=== PATIENT | female | born 1965 | race Caucasian/White ===

== ENCOUNTER 2017-07-25 09:47 | Inpatient (IN) | payer OTHER ==
[2017-07-25 10:38] VITALS: BMI 25.7
--- NOTE | 2017-07-25 13:22 | HP ---
COWS - Scale Resting Pulse: 0= [place] 80 or Below Sweatin= Chills/Flushing Restless Observation: 3= Extraneous Movement Pupil Size: 0= Normal to Room Light Bone or Joint Aches: 4=Acute Joint/Muscle Pain Runny Nose/ Eye Tearin= Nasal Congestion GI Upset > 30mins: 1= Stomach Cramp Tremor Observation: 2= Slight Tremor Visible Yawning Observation: 1= 1-2x During Session Anxiety or Irritability: 2=Irritable/Anxious Goose Flesh Skin: 0=Smooth Skin COWS Score: 15 CIWA Score - CIWA Score Nausea/Vomitin-No Nausea/No Vomiting Muscle Tremors: 4-Moderate,w/Arms Extend Anxiety: 5 Agitation: 4-Moderately Restless Paroxysmal Sweats: 1-Minimal Palms Moist Orientation: 0-Oriented Tacttile Disturbances: 3-Moderate Itch/Numb/Burn Auditory Disturbances: 0-None Visual Disturbances: 0-None Headache: 0-None Present CIWA-Ar Total Score: 17 Admission ROS S - HPI Chief Complaint: DETOX TX FOR OPIATE WITHDRAWAL SX Allergies/Adverse Reactions: Allergies Allergy/AdvReac Type Severity Reaction Status Date / Time No Known Allergies Allergy Verified 07/25/17 11:20 History of Present Illness: 52 Y/O FEMALE WITH A HX OF PERCOCETS DEPENDENCE SEEKING DETOX TX. Exam Limitations: No Limitations - Ebola screening Have you traveled outside of the country in the last 21 days: No Have you had contact with anyone from an Ebola affected area: No Have you been sick,other than usual withdrawal symptoms: No Do you have a fever: No - Review of Systems Constitutional: Chills, Night Sweats, Changes in sleep, Unintentional Wgt. Loss EENT: reports: Blurred Vision (WEARS GLASSES/CONTACTS--WITH PATIENT), Tearing, Nose Congestion Respiratory: reports: Shortness of Breath (HX ASTHMA), Wheezing Cardiac: reports: Palpitations (DUE TO ANXIETY), Chest Tightness (DUE TO ANXIETY ) GI: reports: Constipated, Diarrhea, Nausea, Poor Fluid Intake, Vomiting : reports: No Symptoms Reported Musculoskeletal: reports: Back Pain, Joint Pain, Muscle Pain, Other (HX CARPEL TUNNEL SYNDROM BOTH HANDS) Integumentary: reports: No Symptoms Reported Neuro: reports: Headache, Numbness, Tingling, Tremors Endocrine: reports: No Symptoms Reported Hematology: reports: Anemia (SUPPLEMENTS IN THE PAST.) Psychiatric: reports: Orientated x3, Anxious Other Systems: Reviewed and Negative Patient History - Patient Medical History Hx Anemia: Yes (NO SUPPLEMENTS CURRENTLY) Hx Asthma: Yes (Pt is on MDI.) Hx Chronic Obstructive Pulmonary Disease (COPD): No Hx Cardiac Disorders: No Hx Hypertension: No Hx Hypercholesterolemia: No HX Cerebrovascular Accident: No Hx Seizures: No Hx Diabetes: No Hx Gastrointestinal Disorders: Yes (HEARTBURN-TAKES TUMS ) Hx Genitourinary Disorders: No Hx Sexually Transmitted Disorders: No Hx Renal Disease (ESRD): No Hx Thyroid Disease: No Hx Human Immunodeficiency Virus (HIV): No (NEGATIVE HX ) Hx Hepatitis C: No Hx Depression: No (ANXIETY) Hx Suicide Attempt: No (DENIES) Hx Schizophrenia: No - Patient Surgical History Past Surgical History: No Hx Neurologic Surgery: No Hx Cataract Extraction: No Hx Cardiac Surgery: No Hx Lung Surgery: No Hx Breast Surgery: No Hx Breast Biopsy: No Hx Abdominal Surgery: No Hx Appendectomy: No Hx Cholecystectomy: No Hx Genitourinary Surgery: No Hx Section: No Hx Orthopedic Surgery: No Hx Hysterectomy: No Anesthesia Reaction: No - PPD History Previous Implant?: Yes Documented Results: Negative w/o proof Implanted On Prior R Admission?: No PPD to be Administered?: Yes - Reproductive History Patient is a Female of Child Bearing Age (11 -55 yrs old): Yes Last Menstrual Period: 07/01/17 Patient : No - Smoking Cessation Smoking history: Current every day smoker Have you smoked in the past 12 months: Yes Aproximately how many cigarettes per day: 5 Hx Chewing Tobacco Use: No Initiated information on smoking cessation: Yes 'Breaking Loose' booklet given: 07/25/17 - Substance & Tx. History Hx Alcohol Use: Yes Hx Substance Use: Yes - Substances Abused Marijuana/Hashish Route: Smoking Frequency: Daily Amount used: 1 joint Age of first use: 20 Date of Last Use: 07/24/17 Alcohol Route: Oral Frequency: 3-6 times per week Amount used: 6pk beer Age of first use: 30 Date of Last Use: 07/24/17 percocet Route: Oral Frequency: Daily Amount used: 5-10 (7.5mg pills) Age of first use: 40 Date of Last Use: 07/24/17 Family Disease History - Family Disease History Family Disease History: Heart Disease: Father (PACE MAKER;HTN-), Other: Father, Mother () Admission Physical Exam [facility] - Vital Signs Vital Signs: Vital Signs - 24 hr 07/25/17 10:36 Temperature 97.6 F Pulse Rate 68 Respiratory 18 Rate Blood Pressure 151/85 - Physical General Appearance: Yes: Moderate Distress, Irritable, Anxious HEENTM: Yes: EOMI, Normocephalic, ABRAM, Pharynx Normal Respiratory: Yes: Chest Non-Tender, No Respiratory Distress, Rhonchi (SLIGHT TO MODERATE), Wheezing (SLIGHT) Neck: Yes: No masses,lesions,Nodules, Supple, Trachea in good position Breast: Yes: Breast Exam Deferred Cardiology: Yes: Regular Rhythm, Regular Rate, S1, S2 Abdominal: Yes: Normal Bowel Sounds, Non Tender, Flat, Soft Genitourinary: Yes: Other (N/C) Back: Yes: Within Normal Limits Musculoskeletal: Yes: full range of Motion, Gait Steady Extremities: Yes: Normal Range of Motion, Non-Tender 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, Fully Oriented, Alert, Motor Strength 5/5 Integumentary: Yes: Dry, Warm Lymphatic: Yes: Within Normal Limits - Diagnostic (1) Opioid dependence with withdrawal Current Visit: Yes Status: Acute (2) Alcohol dependence with uncomplicated withdrawal Current Visit: Yes Status: Acute (3) Cannabis dependence, uncomplicated Current Visit: Yes Status: Acute (4) Asthma Current Visit: Yes Status: Acute Qualifiers: Asthma severity: mild Asthma complication type: uncomplicated (5) Heartburn Current Visit: Yes Status: Chronic Cleared for Admission [facility] - Detox or Rehab [facility] Level of Care: Medically Managed Detox Regimen/Protocol: Methadone/Librium [facility] Breath Alcohol Content Breath Alcohol Content: 0 Urine Pregancy Test - Result Urine Test Results: Negative- NO Line Present Urine Drug Screen - Results Drug Screen Negative: Yes Urine Drug Screen Results: THC-Marijuana, OPI-Opiates, AMP-Amphetamines, MTD- Methadone
[2017-07-25] MEDS ORDERED: IBUPROFEN 400 MG TABLET (FP) PO PRN (13:52)
[2017-07-25] MEDS ORDERED: MENTHOL/PHENOL 1 EACH UD MM PRN (13:52)
[2017-07-25] MEDS ORDERED: ACETAMINOPHEN 325 MG TABLET (FP) PO PRN (13:52)
[2017-07-25] MEDS ORDERED: hydrOXYzine PAMOATE 50 MG CAPSULE (FP) PO PRN (13:52)
[2017-07-25] MEDS ORDERED: NICOTINE POLACRILEX 2 MG GUM BUC PRN (13:52)
[2017-07-25] MEDS ORDERED: MAGNESIUM CITRATE 300 ML BOTTLE PO PRN (13:52)
[2017-07-25] MEDS ORDERED: P-EPHED 60MG/TRIPROLIDI 2.5MG TABLET PO PRN (13:52)
[2017-07-25] MEDS ORDERED: guaiFENesin/D-METHORPHAN HB 10 ML UNIT-DOSE CUPS PO PRN (13:52)
[2017-07-25] MEDS ORDERED: MAGNESIUM HYDROX 2400MG/30ML ORAL SUSPENSION 30 ML CUP PO PRN (13:52)
[2017-07-25] MEDS ORDERED: diphenhydrAMINE HCL 50 MG CAPSULE PO PRN (13:52)
[2017-07-25] MEDS ORDERED: LOPERAMIDE HCL 2 MG CAPSULE PO PRN (13:52)
[2017-07-25] MEDS ORDERED: MAG HYDROX/AL HYDROX/SIMETH 30 ML UNIT-DOSE CUP PO PRN (13:52)
[2017-07-25] MEDS ORDERED: ALBUTEROL SO4 18 GM HFA INHALER IH PRN (13:56)
[2017-07-25] MEDS ORDERED: ALBUTEROL SO4 2.5/IPRATROPIUM 0.5 INH SOL 3 ML VIAL.NEB. NEB SCH (14:00)
[2017-07-25] MEDS ORDERED: METHADONE HCL 10 MG TABLET (FOR DETOX USE ONLY) PO ONE ×2 (14:06→23:00)
[2017-07-25] MEDS ORDERED: chlordiazePOXIDE HCL 25 MG CAPSULE PO ONE (14:06)
[2017-07-25] MEDS ORDERED: MAGNESIUM HYDROX 2400MG/30ML ORAL SUSPENSION 30 ML CUP PO ONE (14:12)
[2017-07-25] MEDS ORDERED: RANITIDINE HCL 150 MG TABLET (FP) PO PRN (14:12)
[2017-07-25] MEDS: BUDESONIDE/FORMETEROL FUMARATE 80/4.5 mcg INHALER IH SCH ×2 (15:40→23:06)
[2017-07-25] MEDS: NICOTINE 14 MG/24 HOURS TOPICAL PATCH TD SCH (16:14)
[2017-07-25] MEDS: chlordiazePOXIDE HCL 25 MG CAPSULE PO SCH ×2 (17:44→22:38)
[2017-07-25 22:25] LABS: URINE APPEARANCE TURBID; URINE BILIRUBIN NEGATIVE (NEGATIVE); URINE BLOOD NEGATIVE (NEGATIVE); URINE COLOR YELLOW; URINE GLUCOSE (UA) NEGATIVE (NEGATIVE); URINE KETONE NEGATIVE (NEGATIVE); URINE NITRITE NEGATIVE (NEGATIVE); URINE PROTEIN NEGATIVE (NEGATIVE); URINE UROBILINOGEN NEGATIVE mg/dL (0.2-1.0)
[2017-07-25] MEDS: THIAMINE HCL 100 MG TABLET (FP) PO SCH (22:38)
[2017-07-25] MEDS: ALBUTEROL SO4 2.5/IPRATROPIUM 0.5 INH SOL 3 ML VIAL.NEB. NEB SCH (23:03)
[2017-07-26] MEDS ORDERED: ALBUTEROL SO4 2.5/IPRATROPIUM 0.5 INH SOL 3 ML VIAL.NEB. NEB PRN
[2017-07-26] MEDS: chlordiazePOXIDE HCL 25 MG CAPSULE PO SCH ×4 (06:33→23:09)
[2017-07-26] MEDS: ALBUTEROL SO4 2.5/IPRATROPIUM 0.5 INH SOL 3 ML VIAL.NEB. NEB SCH (07:00)
--- NOTE | 2017-07-26 08:32 | CONSULT ---
[facility] Psychiatric Consult - Data Date of interview: 07/26/17 Admission source: [facility] Identifying data: This is 52 years old female with no psychiatric hospitalization history, intoxicated with: Alcohol, Cannabis, Opioids and Nicotine Substance Abuse History: - Smoking Cessation. Smoking history: Current every day smoker. Have you smoked in the past 12 months: Yes. Aproximately how many cigarettes per day: 5. Hx Chewing Tobacco Use: No. Initiated information on smoking cessation: Yes. 'Breaking Loose' booklet given: 07/25/17. - Substance & Tx. History. Hx Alcohol Use: Yes. Hx Substance Use: Yes. - Substances Abused. Marijuana/Hashish. Route: Smoking. Frequency: Daily. Amount used : 1 joint. Age of first use: 20. Date of Last Use: 07/24/17. Alcohol. Route: Oral. Frequency: 3-6 times per week. Amount used: 6pk beer. Age of first use: 30. Date of Last Use: 07/24/17. percocet. Route: Oral. Frequency: Daily. Amount used: 5-10 (7.5mg pills). Age of first use: 40. Date of Last Use: 07/24/17 Medical History: Asthma, GERD Additional Comment: Observation. Detox Unit Care Protocol Mental Status Exam - Mental Status Exam Alert and Oriented to: Person Cognitive Function: Fair Patient Appearance: Unkempt Mood: Sad Affect: Flat Patient Behavior: Sedated Speech Pattern: Delayed Voice Loudness: Mildly Soft/Quiet Thought Process: Goal Oriented Thought Disorder: Being Controlled Hallucinations: Denies Suicidal Ideation: Denies Homicidal Ideation: Denies Insight/Judgement: Fair Sleep: Difficulty falling asleep Appetite: Fair Muscle strength/Tone: Mild Hypotonicity Gait/Station: Shuffling Additional Comments: Observation. Detox unit care protocol Psychiatric Findings - Problem List ([place] 1, 2,3) (1) Alcohol dependence with uncomplicated withdrawal Current Visit: Yes Status: Acute (2) Cannabis dependence, uncomplicated Current Visit: Yes Status: Acute (3) Opioid dependence with withdrawal Current Visit: Yes Status: Acute (4) Drug-induced mood disorder Current Visit: Yes Status: Suspected - Initial Treatment Plan Initial Treatment Plan: Observation. Detox unit care protocol
[2017-07-26] MEDS ORDERED: METHADONE HCL 10 MG TABLET (FOR DETOX USE ONLY) PO SCH (10:00)
[2017-07-26 10:01] LABS: URINE LEUK ESTERASE Negative (NEGATIVE)
[2017-07-26 10:06] LABS: MCH 21.2 pg (25.7-33.7); MCHC 31.2 g/dl (32.0-36.0); MEAN CELL VOLUME 67.9 fl (80-96); MEAN PLT VOLUME 10.3 fl (7.5-11.1); PLATELET COUNT 280 K/MM3 (134-434); RDW 16.6 % (11.6-15.6); WHITE BLOOD COUNT 10.2 K/mm3 (4.0-10.0)
--- NOTE | 2017-07-26 10:48 | EKG ---
Test Reason : Blood Pressure : / mmHG Vent. Rate : 069 BPM Atrial Rate : 069 BPM P-R Int : 134 ms QRS Dur : 078 ms QT Int : 414 ms P-R-T Axes : 052 061 046 degrees QTc Int : 443 ms NORMAL SINUS RHYTHM MINIMAL VOLTAGE CRITERIA FOR LVH, MAY BE NORMAL VARIANT BORDERLINE ECG NO PREVIOUS ECGS AVAILABLE Confirmed by TROY BLANCHARD MD ([id number]) on 07/26/2017 10:47:38 AM Referred By: Confirmed By:TROY BLANCHARD MD
[2017-07-26] MEDS: PRENATAL VITAMINS W/ FOLIC ACID TABLET (FP) PO SCH (10:51)
[2017-07-26] MEDS: BUDESONIDE/FORMETEROL FUMARATE 80/4.5 mcg INHALER IH SCH ×2 (10:51→23:09)
[2017-07-26] MEDS: NICOTINE 14 MG/24 HOURS TOPICAL PATCH TD SCH (10:52)
[2017-07-26 11:10] LABS: ALBUMIN 3.7 g/dl (3.4-5.0); ALK PHOS 72 U/L (45-117); ANION GAP 7 (8-16); BILIRUBIN,TOTAL 0.4 mg/dL (0.2-1.0); CALCIUM 8.2 mg/dL (8.5-10.1); CO2 29 mmol/L (21-32); CREATININE 0.6 mg/dL (0.55-1.02); GLUCOSE,RANDOM 82 mg/dL (74-106); SGOT/AST 18 U/L (15-37); SGPT/ALT 19 U/L (12-78)
--- NOTE | 2017-07-26 11:31 | PN ---
[facility] CIWA - CIWA Score Nausea/Vomitin-No Nausea/No Vomiting Muscle Tremors: 4-Moderate,w/Arms Extend Anxiety: 3 Agitation: 4-Moderately Restless Paroxysmal Sweats: 3 Orientation: 0-Oriented Tacttile Disturbances: 0-None Auditory Disturbances: 0-None Visual Disturbances: 0-None Headache: 0-None Present CIWA-Ar Total Score: 14 S COWS - Scale Resting Pulse: 0= [place] 80 or Below Sweatin=Flushed/Facial Moisture Restless Observation: 1= Difficult to Sit Still Pupil Size: 0= Normal to Room Light Bone or Joint Aches: 2= Severe Diffuse Aches Runny Nose/ Eye Tearin= Runny Nose/Eyes GI Upset > 30mins: 0= None Tremor Observation of Outstretched Hands: 2= Slight Tremor Visible Yawning Observation: 2= >3x During Session Anxiety or Irritability: 2=Irritable/Anxious Goose Flesh Skin: 3=Piloerection COWS Score: 16 S Progress Note (SOAP) Subjective: agitation irritable tired sweats interrupted sleep Objective: 07/26/17 11:30 Vital Signs Temperature 97.1 F L 07/26/17 09:47 Pulse Rate 71 07/26/17 09:47 Respiratory Rate 16 07/26/17 09:47 Blood Pressure 153/91 07/26/17 09:47 O2 Sat by Pulse Oximetry (%) Laboratory Tests 07/25/17 07/26/17 07/26/17 22:10 06:00 06:00 WBC 10.2 H RBC 6.09 H Hgb 12.9 Hct 41.4 MCV 67.9 L MCH 21.2 L MCHC 31.2 L RDW 16.6 H Plt Count 280 D MPV 10.3 Hypersegmented Neuts Cancelled Hypochromia Cancelled Toxic Granulation Cancelled Dohle Bodies Cancelled Polychromasia Cancelled Poikilocytosis Cancelled Basophilic Stippling Cancelled Anisocytosis Cancelled Microcytosis Cancelled Macrocytosis Cancelled Spherocytes Cancelled Siderocytes Cancelled Sickle Cells Cancelled Target Cells Cancelled Tear Drop Cells Cancelled Ovalocytes Cancelled Stomatocytes Cancelled Helmet Cells Cancelled [place] Bodies Cancelled [place] Rings Cancelled [place] Cells Cancelled Acanthocytes (Spur) Cancelled Rouleaux Cancelled Fragmented RBCs Cancelled Schistocytes Cancelled Morphology Comment Cancelled Sodium 138 Potassium 4.3 Chloride 102 Carbon Dioxide 29 Anion Gap 7 L BUN 11 D Creatinine 0.6 Creat Clearance w eGFR > 60 Random Glucose 82 Calcium 8.2 L Total Bilirubin 0.4 D AST 18 ALT 19 Alkaline Phosphatase 72 Total Protein 7.0 Albumin 3.7 Urine Color Yellow Urine Appearance Turbid Urine pH 8.0 D Ur Specific [place] 1.020 Urine Protein Negative Urine Glucose (UA) Negative Urine Ketones Negative Urine Blood Negative Urine Nitrite Negative Urine Bilirubin Negative Urine Urobilinogen Negative Ur Leukocyte Esterase Negative aaox3 ambulating no acute distress Assessment: 07/26/17 11:30 withdrawal sx Plan: continue detox increase fluids
[2017-07-26] MEDS: chlordiazePOXIDE HCL 25 MG CAPSULE PO PRN (19:37)
[2017-07-26] MEDS ORDERED: cloNIDine HCL 0.1 MG TABLET PO ONE (19:37)
--- NOTE | 2017-07-26 19:59 | PN ---
[facility] Progress Note Note: Patient was seen and evaluated with complaint of anxiety and elevated blood pressure. Patient's blood pressure was B/P 167/105. Nurse reports administration of Librium 25mg prn as ordered. Blood pressure rechecked and was B/P 175/92. Clonidine 0.1 mg stat dose ordered. Will monitor patient.
[2017-07-26] MEDS: THIAMINE HCL 100 MG TABLET (FP) PO SCH (23:09)
[2017-07-27] MEDS: chlordiazePOXIDE HCL 25 MG CAPSULE PO SCH ×2 (05:44→11:12)
[2017-07-27] MEDS: ALBUTEROL SO4 2.5/IPRATROPIUM 0.5 INH SOL 3 ML VIAL.NEB. NEB SCH (05:44)
[2017-07-27] MEDS: chlordiazePOXIDE HCL 25 MG CAPSULE PO PRN (09:44)
[2017-07-27] MEDS: PRENATAL VITAMINS W/ FOLIC ACID TABLET (FP) PO SCH (09:44)
[2017-07-27] MEDS: NICOTINE 14 MG/24 HOURS TOPICAL PATCH TD SCH (09:45)
[2017-07-27] MEDS: BUDESONIDE/FORMETEROL FUMARATE 80/4.5 mcg INHALER IH SCH (09:45)
[2017-07-27] MEDS ORDERED: LIDOCAINE 5% TOPICAL PATCH TP SCH (10:00)
[2017-07-27] MEDS ORDERED: METHADONE HCL 5 MG TABLET (FOR DETOX USE ONLY) PO SCH ×2 (10:00)
[2017-07-27 11:11] VITALS: BP 138/97; PULSE 85; TEMP 97.3
--- NOTE | 2017-07-27 11:14 | PN ---
S CIWA - CIWA Score Nausea/Vomitin Muscle Tremors: 3 Anxiety: 3 Agitation: 2 Paroxysmal Sweats: 3 Orientation: 0-Oriented Tacttile Disturbances: 2-Mild Itch/Numbness/Burn Auditory Disturbances: 0-None Visual Disturbances: 0-None Headache: 0-None Present CIWA-Ar Total Score: 15 [facility] COWS - Scale Resting Pulse: 1= [place] 81-100 Sweatin=Flushed/Facial Moisture Restless Observation: 1= Difficult to Sit Still Pupil Size: 1= Pupils >than Normal Bone or Joint Aches: 2= Severe Diffuse Aches Runny Nose/ Eye Tearin= Nasal Congestion GI Upset > 30mins: 1= Stomach Cramp Tremor Observation of Outstretched Hands: 2= Slight Tremor Visible Yawning Observation: 0= None Anxiety or Irritability: 2=Irritable/Anxious Goose Flesh Skin: 0=Smooth Skin COWS Score: 13 S Progress Note (SOAP) Subjective: interrupted sleep, sweats, shakes, lbp Objective: 07/27/17 11:16 Vital Signs Temperature 97.3 F L 07/27/17 10:00 Pulse Rate 85 07/27/17 10:00 Respiratory Rate 18 07/27/17 10:00 Blood Pressure 138/97 07/27/17 10:00 O2 Sat by Pulse Oximetry (%) Laboratory Tests 07/25/17 07/26/17 07/26/17 22:10 06:00 06:00 WBC 10.2 H RBC 6.09 H Hgb 12.9 Hct 41.4 MCV 67.9 L MCH 21.2 L MCHC 31.2 L RDW 16.6 H Plt Count 280 D MPV 10.3 Hypersegmented Neuts Cancelled Hypochromia Cancelled Toxic Granulation Cancelled Dohle Bodies Cancelled Polychromasia Cancelled Poikilocytosis Cancelled Basophilic Stippling Cancelled Anisocytosis Cancelled Microcytosis Cancelled Macrocytosis Cancelled Spherocytes Cancelled Siderocytes Cancelled Sickle Cells Cancelled Target Cells Cancelled Tear Drop Cells Cancelled Ovalocytes Cancelled Stomatocytes Cancelled Helmet Cells Cancelled [place] Bodies Cancelled [place] Rings Cancelled [place] Cells Cancelled Acanthocytes (Spur) Cancelled Rouleaux Cancelled Fragmented RBCs Cancelled Schistocytes Cancelled Morphology Comment Cancelled Sodium 138 Potassium 4.3 Chloride 102 Carbon Dioxide 29 Anion Gap 7 L BUN 11 D Creatinine 0.6 Creat Clearance w eGFR > 60 Random Glucose 82 Calcium 8.2 L Total Bilirubin 0.4 D AST 18 ALT 19 Alkaline Phosphatase 72 Total Protein 7.0 Albumin 3.7 Urine Color Yellow Urine Appearance Turbid Urine pH 8.0 D Ur Specific [place] 1.020 Urine Protein Negative Urine Glucose (UA) Negative Urine Ketones Negative Urine Blood Negative Urine Nitrite Negative Urine Bilirubin Negative Urine Urobilinogen Negative Ur Leukocyte Esterase Negative RPR Titer 07/26/17 06:00 WBC RBC Hgb Hct MCV MCH MCHC RDW Plt Count MPV Hypersegmented Neuts Hypochromia Toxic Granulation Dohle Bodies Polychromasia Poikilocytosis Basophilic Stippling Anisocytosis Microcytosis Macrocytosis Spherocytes Siderocytes Sickle Cells Target Cells Tear Drop Cells Ovalocytes Stomatocytes Helmet Cells Mueller-[place]yle Bodies [place] Rings [place] Cells Acanthocytes (Spur) Rouleaux Fragmented RBCs Schistocytes Morphology Comment Sodium Potassium Chloride Carbon Dioxide Anion Gap BUN Creatinine Creat Clearance w eGFR Random Glucose Calcium Total Bilirubin AST ALT Alkaline Phosphatase Total Protein Albumin Urine Color Urine Appearance Urine pH Ur Specific [place] Urine Protein Urine Glucose (UA) Urine Ketones Urine Blood Urine Nitrite Urine Bilirubin Urine Urobilinogen Ur Leukocyte Esterase RPR Titer Nonreactive pt aox3 , anxious but in nad ambulating Assessment: 07/27/17 11:17 withdrawal sx's lbp htn 07/27/17 11:18 Plan: cont. detox increase fluids lidocaine patch q /d norvasc 5mg /d
[2017-07-27] MEDS ORDERED: amLODIPine BESYLATE 5 MG TABLET (FP) PO ONE (11:32)
--- NOTE | 2017-07-27 11:54 | DS ---
[facility] Detox Discharge Summary Admission Date: 07/25/17 Discharge Date: 07/27/17 - History Present History: Cannabis Dependence, Opioid Dependence - Physical Exam Results Vital Signs: Vital Signs Temperature 97.3 F L 07/27/17 10:00 Pulse Rate 85 07/27/17 10:00 Respiratory Rate 18 07/27/17 10:00 Blood Pressure 138/97 07/27/17 10:00 O2 Sat by Pulse Oximetry (%) - Treatment Hospital Course: Detox Protocol Followed - Medication Discharge Medications: Ambulatory Orders Albuterol Sulfate Inhaler - [Ventolin Hfa Inhaler -] 2 inh PO Q4H PRN 07/25/17 - Diagnosis (1) Alcohol dependence with uncomplicated withdrawal Current Visit: Yes Status: Chronic (2) Asthma Current Visit: Yes Status: Chronic Qualifiers: Asthma severity: mild Asthma persistence: unspecified Asthma complication type: uncomplicated Qualified Code(s): J45.909 - Unspecified asthma, uncomplicated; J45.909 - Unspecified asthma, uncomplicated; J45.909 - Unspecified asthma, uncomplicated (3) Cannabis dependence, uncomplicated Current Visit: Yes Status: Chronic (4) Heartburn Current Visit: Yes Status: Chronic (5) Opioid dependence with withdrawal Current Visit: Yes Status: Chronic (6) Acute bilateral low back pain Current Visit: Yes Status: Acute - AMA Did Patient Leave Against Medical Advice: Yes (pt no longer wants detox. )
[2017-07-27] MEDS ORDERED: CYCLOBENZAPRINE HCL 5 MG TABLET PO SCH (14:00)
[2017-07-27] MEDS ORDERED: chlordiazePOXIDE 5 MG CAPSULE PO SCH (17:00)
[2017-07-27] MEDS ORDERED: LIDOCAINE PATCH REMOVAL MC SCH (22:00)
[2017-07-28] MEDS ORDERED: amLODIPine BESYLATE 5 MG TABLET (FP) PO SCH (10:00)
[2017-07-28] MEDS ORDERED: METHADONE HCL 10 MG TABLET (FOR DETOX USE ONLY) PO SCH (10:00)
[2017-07-28] MEDS ORDERED: chlordiazePOXIDE HCL 10 MG CAPSULE PO SCH (17:00)
[2017-07-29] MEDS ORDERED: METHADONE HCL 5 MG TABLET (FOR DETOX USE ONLY) PO SCH (06:00)
[2017-07-29] MEDS ORDERED: METHADONE HCL 10 MG TABLET (FOR DETOX USE ONLY) PO SCH (10:00)
[2017-07-30] MEDS ORDERED: METHADONE HCL 5 MG TABLET (FOR DETOX USE ONLY) PO SCH (06:00)
== END 2017-07-27 12:00 | disposition home or self-care (01) | DRG 773 ==
LOC: EDBD 09:47 → YASAS 09:47 → Y6N 13:10
PROVIDERS: ADMIT Internal Medicine; ATTEND Internal Medicine
PROC: HZ2ZZZZ Detoxification Services for Substance Abuse Treatment (ICD-10-PCS; principal; 2017-07-25)
DX: F11.23 Opioid dependence with withdrawal (principal); F10.230 Alcohol dependence with withdrawal, uncomplicated; F12.20 Cannabis dependence, uncomplicated; F17.210 Nicotine dependence, cigarettes, uncomplicated; F19.24 Other psychoactive substance dependence with psychoactive substance-induced mood disorder; J45.909 Unspecified asthma, uncomplicated; M54.5 Low back pain; D64.9 Anemia, unspecified; R12 Heartburn
CPT/HCPCS: 36415; 80053; 81003; 85027; 86593; 93005; 93010; 94640

== ENCOUNTER 2018-02-01 02:59 | Inpatient (IN) | payer OTHER ==
--- NOTE | 2018-02-01 04:22 | HP ---
COWS - Scale Resting Pulse: 0= [place] 80 or Below Sweatin=Flushed/Facial Moisture Restless Observation: 0= Sits Still Pupil Size: 0= Normal to Room Light Bone or Joint Aches: 4=Acute Joint/Muscle Pain Runny Nose/ Eye Tearin= Runny Nose/Eyes GI Upset > 30mins: 3= Vomiting/Diarrhea (vomiting x 2, no diarrhea) Tremor Observation: 2= Slight Tremor Visible Yawning Observation: 0= None Anxiety or Irritability: 2=Irritable/Anxious Goose Flesh Skin: 0=Smooth Skin COWS Score: 15 Admission [facility] Chief Complaint: Opiates withdrawal symptoms Allergies/Adverse Reactions: Allergies Allergy/AdvReac Type Severity Reaction Status Date / Time No Known Allergies Allergy Verified 07/25/17 11:20 History of Present Illness: 49 years old female with a long history of opiates dependence is seeking admission to detox from [facility]. Patient has been in previous detox and reports about 20 years of sobriety. She has medical history of asthma, HTN, anemia, heartburn and anxiety. She denies suicide attempt and suicidal ideation at this time Exam Limitations: No Limitations - Ebola screening Have you traveled outside of the country in the last 21 days: No Have you had contact with anyone from an Ebola affected area: No Have you been sick,other than usual withdrawal symptoms: No Do you have a fever: No - Review of Systems Constitutional: Chills, Malaise, Night Sweats, Changes in sleep EENT: reports: Hearing Loss (both ear), Other (wears prescription glasses) Respiratory: reports: No Symptoms reported Cardiac: reports: No Symptoms Reported GI: reports: Nausea, Poor Appetite, Poor Fluid Intake, Vomiting (x 2), Abdominal cramping : reports: No Symptoms Reported Musculoskeletal: reports: No Symptoms Reported Integumentary: reports: No Symptoms Reported Neuro: reports: Headache, Tingling, Tremors Endocrine: reports: No Symptoms Reported Hematology: reports: No Symptoms Reported Psychiatric: reports: Orientated x3, Agitated, Anxious Other Systems: Reviewed and Negative Patient History - Patient Medical History Hx Anemia: Yes (Not on medication) Hx Asthma: Yes (Albuterol) Hx Chronic Obstructive Pulmonary Disease (COPD): No Hx Cancer: No Hx Cardiac Disorders: No Hx Congestive Heart Failure: No Hx Hypertension: Yes (Not on medication) Hx Hypercholesterolemia: No HX Cerebrovascular Accident: No Hx Seizures: No Hx Diabetes: No Hx Gastrointestinal Disorders: Yes (HEARTBURN-Not on medication) Hx Liver Disease: No Hx Genitourinary Disorders: No Hx Sexually Transmitted Disorders: No Hx Renal Disease (ESRD): No Hx Thyroid Disease: No Hx Human Immunodeficiency Virus (HIV): No (NEGATIVE 2017) Hx Hepatitis C: No Hx Depression: No ( ) Hx Suicide Attempt: No (Denies suicide attempt and suicidal ideation at this time) Hx Bipolar Disorder: Yes Hx Schizophrenia: No Other Medical History: Anxiety - not on medication - Patient Surgical History Past Surgical History: No Hx Neurologic Surgery: No Hx Cataract Extraction: No Hx Cardiac Surgery: No Hx Lung Surgery: No Hx Breast Surgery: No Hx Breast Biopsy: No Hx Abdominal Surgery: No Hx Appendectomy: No Hx Cholecystectomy: No Hx Genitourinary Surgery: No Hx Section: No Hx Orthopedic Surgery: No Hx Hysterectomy: No Anesthesia Reaction: No - PPD History Documented Results: Negative w/o proof Implanted On Prior [facility] Admission?: No Date: 07/27/17 PPD to be Administered?: Yes - Reproductive History Patient is a Female of Child Bearing Age (11 -55 yrs old): No Last Menstrual Period: 01/06/18 Patient : No - Smoking Cessation Smoking history: Current every day smoker Have you smoked in the past 12 months: Yes Aproximately how many cigarettes per day: 5 Hx Chewing Tobacco Use: No Initiated information on smoking cessation: Yes 'Breaking Loose' booklet given: 02/01/18 - Substance & Tx. History Hx Alcohol Use: No Hx Substance Use: Yes Substance Use Type: Heroin, Marijuana, Opiates Hx Substance Use Treatment: Yes ([facility]) - Substances Abused percocet Route: Oral Frequency: Daily Amount used: 4 tablets Age of first use: 45 Date of Last Use: 02/01/18 Marijuana/Hashish Route: Smoking Frequency: Daily Amount used: $10 Age of first use: 45 Date of Last Use: 01/31/18 Family Disease History - Family Disease History Family Disease History: Heart Disease: Father (PACE MAKER;HTN-), Other: Father, Mother () Admission Physical Exam [facility] - Physical General Appearance: Yes: Moderate Distress, Tremorous, Irritable, Sweating, Anxious HEENTM: Yes: EOMI, Normal ENT Inspection, Normal Voice, ABRAM Respiratory: Yes: Wheezing Neck: Yes: Supple Breast: Yes: Breast Exam Deferred Cardiology: Yes: Regular Rhythm, Regular Rate, S1, S2 Abdominal: Yes: Normal Bowel Sounds, Soft Genitourinary: Yes: Within Normal Limits Back: Yes: Normal Inspection Musculoskeletal: Yes: Back pain, Muscle Pain Extremities: Yes: Tremors Neurological: Yes: Alert, Normal Mood/Affect Integumentary: Yes: Warm Lymphatic: Yes: Within Normal Limits - Diagnostic (1) Anemia Current Visit: Yes Status: Chronic Qualifiers: Anemia type: iron deficiency (2) Nicotine dependence Current Visit: Yes Status: Chronic (3) Asthma Current Visit: Yes Status: Chronic Qualifiers: Asthma severity: moderate Asthma persistence: unspecified Asthma complication type: uncomplicated Qualified Code(s): J45.909 - Unspecified asthma, uncomplicated (4) Cannabis dependence, uncomplicated Current Visit: Yes Status: Chronic (5) Heartburn Current Visit: Yes Status: Chronic (6) Opioid dependence with withdrawal Current Visit: Yes Status: Chronic Cleared for Admission [facility] - Detox or Rehab S Level of Care: Medically Managed Detox Regimen/Protocol: Methadone [facility] Breath Alcohol Content Breath Alcohol Content: 0 Vital Signs - Vital Signs Vital Signs Refused: Yes Temperature: 97.1 F Temperature Source: Oral Pulse Rate: 69 Respiratory Rate: 17 Blood Pressure: 187/91 BP Location: Right Arm Blood Pressure Position: Sitting - Height Height: 5 ft 3 in - Weight Weight: 141 lb Weight Measurement Method: Standing Scale Body Mass Index (BMI): 25.0 - Bowel Function Bowel Movement: No Urine Pregancy Test - Test Device Lot Number: [id number] Expiration Date: 08/30/18 - Control Horizontal Line in Upper Control Window?: Yes - Result Urine Test Results: Negative- NO Line Present Urine Drug Screen - Test Device Lot Number: [id number] Expiration Date: 10/31/19 - Control Is Test Valid: Yes - Results Drug Screen Negative: No Urine Drug Screen Results: THC-Marijuana, OPI-Opiates, AMP-Amphetamines, MTD- Methadone, OXY-Oxycodone
[2018-02-01] MEDS ORDERED: MENTHOL/PHENOL 1 EACH UD MM PRN (04:45)
[2018-02-01] MEDS ORDERED: MAG HYDROX/AL HYDROX/SIMETH 30 ML UNIT-DOSE CUP PO PRN (04:45)
[2018-02-01] MEDS ORDERED: NICOTINE POLACRILEX 2 MG GUM BC PRN (04:45)
[2018-02-01] MEDS ORDERED: P-EPHED 60MG/TRIPROLIDI 2.5MG TABLET PO PRN (04:45)
[2018-02-01] MEDS ORDERED: LOPERAMIDE HCL 2 MG CAPSULE PO PRN (04:45)
[2018-02-01] MEDS ORDERED: MAGNESIUM CITRATE 300 ML BOTTLE PO PRN (04:45)
[2018-02-01] MEDS ORDERED: MAGNESIUM HYDROX 2400MG/30ML ORAL SUSPENSION 30 ML CUP PO PRN (04:45)
[2018-02-01] MEDS ORDERED: METHADONE HCL 10 MG TABLET (FOR DETOX USE ONLY) PO ONE ×3 (04:45→23:00)
[2018-02-01] MEDS ORDERED: guaiFENesin/D-METHORPHAN HB 10 ML UNIT-DOSE CUPS PO PRN (04:45)
[2018-02-01] MEDS ORDERED: ACETAMINOPHEN 325 MG TABLET (FP) PO PRN (04:45)
[2018-02-01] MEDS ORDERED: ALBUTEROL SO4 18 GM HFA INHALER IH PRN (04:47)
[2018-02-01 04:49] VITALS: BMI 25.0
[2018-02-01] MEDS ORDERED: PNEUMOC 13-VAL CONJ-DIP CRM/PF 0.5 ML DISP.SYRIN IM ONE (06:18)
[2018-02-01] MEDS ORDERED: cloNIDine HCL 0.1 MG TABLET PO ONE (06:19)
[2018-02-01] MEDS: diazePAM 5 MG TABLET PO PRN ×2 (06:36→21:55)
--- NOTE | 2018-02-01 09:47 | EKG ---
Test Reason : Blood Pressure : / mmHG Vent. Rate : 068 BPM Atrial Rate : 068 BPM P-R Int : 142 ms QRS Dur : 080 ms QT Int : 412 ms P-R-T Axes : 065 059 085 degrees QTc Int : 438 ms NORMAL SINUS RHYTHM MINIMAL VOLTAGE CRITERIA FOR LVH, MAY BE NORMAL VARIANT NONSPECIFIC T WAVE ABNORMALITY ABNORMAL ECG WHEN COMPARED WITH ECG OF 25-JUL-2017 14:53, NONSPECIFIC T WAVE ABNORMALITY NOW EVIDENT IN LATERAL LEADS Confirmed by HERMELINDA COVARRUBIAS MD ([id number]) on 02/01/2018 9:47:29 AM Referred By: Confirmed By:HERMELINDA COVARRUBIAS MD
[2018-02-01] MEDS ORDERED: PRENATAL VITAMINS W/ FOLIC ACID TABLET (FP) PO SCH (10:00)
[2018-02-01] MEDS: NICOTINE 14 MG/24 HOURS TOPICAL PATCH TD SCH (11:00)
[2018-02-01] MEDS ORDERED: FLU VACCINE QUAD 60 MCG/0.5 ML (MDV 17-18) IM ONE (12:00)
[2018-02-01] MEDS ORDERED: PNEUMOCOCCAL 23 VACCINE 0.5 ML VIAL IM ONE (12:00)
--- NOTE | 2018-02-01 12:44 | PN ---
S Progress Note Note: 49 YEARS OLD FEMALE WITH OPIOID AND COCAINE DEPENDENCE ADMITTED EARLIER TODAY WITH METHADONE REGIMEN, EKG ,LVH,PROLONG QT 412/438 CONTINUE DETOX WITH MONITORING
--- NOTE | 2018-02-01 14:36 | CONSULT ---
[facility] Psychiatric Consult - Data Date of interview: 02/01/18 Admission source: [facility] Identifying data: Patient is a 49 year old single female, mother of three, domicile,unemployed, and reports no financial assistance. This is one of multiple admissions for patient. Pt. admitted to for alcohol and cocaine dependence. Substance Abuse History: Following information confirmed with Ms. Morrison: Smoking Cessation. Smoking history: Current every day smoker. Have you smoked in the past 12 months: Yes. Aproximately how many cigarettes per day: 5. Hx Chewing Tobacco Use: No. Initiated information on smoking cessation: Yes. ' Breaking Loose' booklet given: 02/01/18. - Substance & Tx. History. Hx Alcohol Use: No. Hx Substance Use: Yes. Substance Use Type: Heroin, Marijuana , Opiates. Hx Substance Use Treatment: Yes ([facility]). - Substances Abused. percocet. Route: Oral. Frequency: Daily. Amount used: 4 tablets. Age of first use: 45. Date of Last Use: 02/01/18. Marijuana/Hashish. Route: Smoking. Frequency: Daily. Amount used: $10. Age of first use: 45. Date of Last Use: 01/31/18 Medical History: Anemia, asthma, hypertension. Psychiatric History: Patient denies h/o psychiatric hospitalizations, outpatient care, and suicide attempt. Physical/Sexual Abuse/Trauma History: Denies. Mental Status Exam - Mental Status Exam Alert and Oriented to: Time, Place, Person Cognitive Function: Fair Patient Appearance: Well Groomed Mood: Withdrawn, Euthymic Affect: Mood Congruent Patient Behavior: Sedated, Fatigued Speech Pattern: Delayed Voice Loudness: Moderately Soft/Quiet Thought Process: Goal Oriented Thought Disorder: Not Present Hallucinations: Denies Suicidal Ideation: Denies Homicidal Ideation: Denies Insight/Judgement: Poor Sleep: Fair Appetite: Fair Muscle strength/Tone: Normal Gait/Station: Normal Psychiatric Findings - Problem List ([place] 1, 2,3) (1) Cannabis dependence, uncomplicated Current Visit: Yes Status: Chronic (2) Nicotine dependence Current Visit: Yes Status: Chronic (3) Opioid dependence with withdrawal Current Visit: Yes Status: Chronic - Initial Treatment Plan Initial Treatment Plan: Psychoeducation provided. Detoxification in progress. Observation.
[2018-02-01] MEDS: IBUPROFEN 400 MG TABLET (FP) PO PRN (22:00)
[2018-02-01] MEDS ORDERED: MELATONIN 5 MG TABLETS PO PRN (22:00)
[2018-02-01] MEDS ORDERED: THIAMINE HCL 100 MG TABLET (FP) PO SCH (22:00)
[2018-02-01] MEDS ORDERED: LISINOPRIL 5 MG TABLET (FP) PO ONE (23:26)
--- NOTE | 2018-02-01 23:42 | PN ---
[facility] Progress Note Note: Called to evaluate elevated B/P: Vital Signs - 24 hr 02/01/18 02/01/18 02/01/18 05:58 08:24 10:17 Temperature 97.1 F L 97.6 F 97.8 F Pulse Rate 69 72 69 Respiratory 17 16 18 Rate Blood Pressure 187/91 156/88 144/82 02/01/18 02/01/18 02/01/18 14:11 17:26 22:13 Temperature 97.7 F 98.1 F 97.3 F L Pulse Rate 80 74 63 Respiratory 16 18 16 Rate Blood Pressure 150/78 141/66 176/104 Repeated B/P was 151/105. Patient denies headache, vertigo, weakness. A&Ox3. HR : regular rhythm. Will give Lisinopril 5 mg PO now and start on daily.
[2018-02-02] MEDS: diazePAM 5 MG TABLET PO PRN (09:29)
[2018-02-02] MEDS: IBUPROFEN 400 MG TABLET (FP) PO PRN (09:29)
--- NOTE | 2018-02-02 09:46 | PN ---
[facility] COWS - Scale Resting Pulse: 0= GA 80 or Below Sweatin=Flushed/Facial Moisture Restless Observation: 3= Extraneous Movement Pupil Size: 0= Normal to Room Light Bone or Joint Aches: 2= Severe Diffuse Aches Runny Nose/ Eye Tearin= Nasal Congestion GI Upset > 30mins: 1= Stomach Cramp Tremor Observation of Outstretched Hands: 2= Slight Tremor Visible Yawning Observation: 1= 1-2x During Session Anxiety or Irritability: 4=Extreme Anxiety Goose Flesh Skin: 3=Piloerection COWS Score: 19 [facility] Progress Note (SOAP) Subjective: Agitation, restlessness, tremors, sweats and shakes Objective: 02/02/18 09:45 Vital Signs - 8 hr 02/02/18 02/02/18 02/02/18 03:30 06:10 06:30 Temperature 97.9 F Pulse Rate 61 Respiratory 18 20 16 Rate Blood Pressure 192/98 02/02/18 06:53 Temperature Pulse Rate 60 Respiratory 20 Rate Blood Pressure 172/75 Labs pending Assessment: 02/02/18 09:46 Withdrawal sx Plan: Continue detox
[2018-02-02] MEDS ORDERED: METHADONE HCL 10 MG TABLET (FOR DETOX USE ONLY) PO ONE (10:00)
[2018-02-02] MEDS ORDERED: LISINOPRIL 5 MG TABLET (FP) PO SCH (10:00)
[2018-02-02 10:40] VITALS: BP 169/73; PULSE 71; TEMP 97.7
[2018-02-02 10:42] LABS: HEMATOCRIT 41.2 % (32.4-45.2); HEMOGLOBIN 13.1 GM/dL (10.7-15.3); MCH 21.6 pg (25.7-33.7); MCHC 31.7 g/dl (32.0-36.0); MEAN PLT VOLUME 9.3 fl (7.5-11.1); PLATELET COUNT 234 K/MM3 (134-434); RBC 6.06 M/mm3 (3.60-5.2); RDW 15.7 % (11.6-15.6)
[2018-02-02 10:48] LABS: CHLORIDE 106 mmol/L (98-107); POTASSIUM 4.5 mmol/L (3.5-5.1); SODIUM 141 mmol/L (136-145)
[2018-02-02 11:02] LABS: ALBUMIN 3.1 g/dl (3.4-5.0); ALK PHOS 55 U/L (45-117); ANION GAP 1 (8-16); BILIRUBIN,TOTAL 0.4 mg/dL (0.2-1.0); BLOOD UREA NITROGEN 13 mg/dL (7-18); CALCIUM 8.1 mg/dL (8.5-10.1); CO2 34 mmol/L (21-32); CREATININE 0.7 mg/dL (0.55-1.02); GLUCOSE,RANDOM 81 mg/dL (74-106); SGOT/AST 17 U/L (15-37); SGPT/ALT 12 U/L (12-78); TOT PROT 5.8 g/dl (6.4-8.2)
[2018-02-02] MEDS: NICOTINE 14 MG/24 HOURS TOPICAL PATCH TD SCH (11:15)
[2018-02-03] MEDS ORDERED: METHADONE HCL 5 MG TABLET (FOR DETOX USE ONLY) PO ONE (10:00)
[2018-02-04] MEDS ORDERED: METHADONE HCL 5 MG TABLET (FOR DETOX USE ONLY) PO ONE (10:00)
[2018-02-05] MEDS ORDERED: METHADONE HCL 10 MG TABLET (FOR DETOX USE ONLY) PO ONE (10:00)
[2018-02-06] MEDS ORDERED: METHADONE HCL 5 MG TABLET (FOR DETOX USE ONLY) PO ONE (06:00)
--- NOTE | 2018-02-15 14:51 | DS ---
[facility] Detox Discharge Summary Admission Date: 02/01/18 Discharge Date: 02/02/18 - History Present History: Alcohol Dependence, Cannabis Dependence, Opioid Dependence Additional Comments: Note: The patient insists on leaving the Hospital and is signing out against medical advice. Care being refused: The patient understands the risks and complications that may result from the refusal of medical care which may include and permanent disability. The patient has the mental capacity of understanding the risks of refusing care and is capable of making an informed decision. The patient was instructed to return to the Emergency Department should he/she change his/her mind regarding medical care or should his/her condition worsen. The patient signed the Against Medical Advice form. the pt spoke with the counselor John GILES NP and this fiction writer and all of the other nursing staff telling us that she had to leave today because she needs to get at least methadone 60 mgs or more to help her that valium, vistaril, clnidine or flexeril will not help her only methdone will.She was informed that if she wants that uch methadone that she must go to a methadone clinic. She was alert and oriented times three, speech clear and gait steady. A ll of her property on the unit was returned to her. She was advisd to attend meetings regularly in order to help maintain he rsobriety. She was escorted off the unit in stable medical condition by the nusing staff [place]. Pertinent Past History: anxiety, depression and insomnia, nicotine dependence, GERD, - Physical Exam Results Vital Signs: Vital Signs Temperature 97.7 F 02/02/18 10:00 Pulse Rate 71 02/02/18 10:00 Respiratory Rate 18 02/02/18 10:00 Blood Pressure 169/73 02/02/18 10:00 O2 Sat by Pulse Oximetry (%) Laboratory Tests 02/02/18 02/02/18 02/02/18 07:40 07:40 07:40 WBC 8.0 RBC 6.06 H Hgb 13.1 Hct 41.2 MCV 68.0 L MCH 21.6 L MCHC 31.7 L RDW 15.7 H Plt Count 234 MPV 9.3 Sodium 141 Potassium 4.5 Chloride 106 Carbon Dioxide 34 H Anion Gap 1 L BUN 13 Creatinine 0.7 Creat Clearance w eGFR > 60 Random Glucose 81 Calcium 8.1 L Total Bilirubin 0.4 AST 17 ALT 12 Alkaline Phosphatase 55 Total Protein 5.8 L Albumin 3.1 L RPR Titer Nonreactive Pertinent Admission Physical Exam Findings: witdhrawal sx, dehydration - Treatment Hospital Course: Detox Protocol Followed - Medication Discharge Medications: Ambulatory Orders Albuterol Sulfate Inhaler - [Ventolin Hfa Inhaler -] 2 inh PO Q4H PRN 07/25/17 - Diagnosis (1) Chronic bilateral low back pain Status: Acute Qualifiers: Sciatica presence: without sciatica Qualified Code(s): M54.5 - Low back pain; G89.29 - Other chronic pain; G89.29 - Other chronic pain (2) Opioid dependence with withdrawal Status: Acute (3) Alcohol dependence with uncomplicated withdrawal Status: Chronic (4) Anemia Status: Chronic Qualifiers: Anemia type: iron deficiency (5) Asthma Status: Chronic Qualifiers: Asthma severity: moderate Asthma persistence: unspecified Asthma complication type: uncomplicated Qualified Code(s): J45.909 - Unspecified asthma, uncomplicated (6) Cannabis dependence, uncomplicated Status: Chronic (7) Heartburn Status: Chronic (8) Nicotine dependence Status: Chronic Qualifiers: Nicotine product type: cigarettes Substance use status: uncomplicated Qualified Code(s): F17.210 - Nicotine dependence, cigarettes, uncomplicated (9) Drug-induced mood disorder Status: Suspected - AMA Did Patient Leave Against Medical Advice: Yes
== END 2018-02-02 14:35 | disposition left against medical advice (07) | DRG 770 ==
LOC: YASAS 02:59 → Y6N 04:53
PROVIDERS: ADMIT Surgery; ATTEND Surgery
PROC: HZ2ZZZZ Detoxification Services for Substance Abuse Treatment (ICD-10-PCS; principal; 2018-02-01)
DX: F11.23 Opioid dependence with withdrawal (principal); F12.20 Cannabis dependence, uncomplicated; F17.210 Nicotine dependence, cigarettes, uncomplicated; F31.9 Bipolar disorder, unspecified; F41.9 Anxiety disorder, unspecified; I10 Essential (primary) hypertension; D64.9 Anemia, unspecified; J45.909 Unspecified asthma, uncomplicated; R12 Heartburn
CPT/HCPCS: 36415; 80053; 85027; 86593; 93005; 93010; J0735